=== PATIENT | female | born 1980 | race African-American/Black ===

== ENCOUNTER 2019-01-29 22:53 | Observation (INO) | payer OTHER ==
[2019-01-29] MEDS ORDERED: MAGNESIUM SULFATE/D5W 2 GM/200 ML RTUPB IV ONE (23:01)
[2019-01-29] MEDS ORDERED: METHYLPREDNISOLONE INJ 125 MG/2 ML SDV ONE (23:01)
[2019-01-29] MEDS ORDERED: IPRATROPIUM/ALBUTEROL 0.5-2.5 MG/3 ML AMPUL NEB ONE ×2 (23:01→23:11)
[2019-01-29] MEDS ORDERED: ALBUTEROL SULFATE 0.083% NEB 2.5 MG/3 ML AMPUL NEB ONE ×2 (23:01→23:12)
[2019-01-29] MEDS ORDERED: METHYLPREDNISOLONE INJ 125 MG/2 ML SDV IV ONE (23:11)
[2019-01-29] MEDS: MAGNESIUM SULFATE/D5W 1 GM/100 ML RTUPB IV SCH ×2 (23:11→23:30)
[2019-01-29] MEDS ORDERED: RINGERS SOLUTION,LACTATED 1,000 ML IV ONE (23:12)
--- NOTE | 2019-01-29 23:14 | ER Document Report ---
ED General <TENNILLE QUINTANILLA - Last Filed: 01/30/19 00:34> - General Cannot obtain history due to: Unstable vital signs, Other - Respiratory distress TRAVEL OUTSIDE OF THE [place] IN LAST 30 DAYS: No <TENNILLE CERNA - Last Filed: 01/30/19 04:49> - General Chief Complaint: Shortness Of Breath Stated Complaint: SHORTNESS OF BREATH Time Seen by Provider: 01/29/19 23:11 Notes: Patient is a 38-year-old female with a past medical history of asthma, obesity, hypertension, presents with 4 to 5 hours of progressively worsening shortness of breath. History is very limited secondary to the degree of patient's distress at time of initial presentation. States that her symptoms have been progressively worsening despite use of home albuterol treatments. No obvious worsening factor. States that she has had severe exacerbations in the past but is never required intubation. Has not seen her primary care physician regarding today's concerns. Denies fever or constitutional symptoms. (TENNILLE CERNA) - Related Data Allergies/Adverse Reactions: No Known Allergies Allergy (Verified 12/05/13 14:57) Past Medical History - General Information source: Patient, Relative Cannot obtain history due to: Unstable vital signs, Other - Respiratory distress - Social History Smoking Status: Never Smoker Frequency of alcohol use: None Drug Abuse: None Lives with: Family Family History: Reviewed & Not Pertinent Pulmonary Medical History: Reports: Hx Asthma Past Surgical History: Reports: Hx Abdominal Surgery - gasll stones removed - Immunizations Hx Diphtheria, Pertussis, Tetanus Vaccination: Yes <TENNILLE CERNA - Last Filed: 01/30/19 04:49> Review of Systems <TENNILLE CERNA - Last Filed: 01/30/19 04:49> - Review of Systems Notes: Constitutional: Negative for fever. HENT: Negative for sore throat. Eyes: Negative for visual changes. Cardiovascular: Negative for chest pain. Respiratory: Positive for shortness of breath. Gastrointestinal: Negative for abdominal pain, vomiting or diarrhea. Genitourinary: Negative for dysuria. Musculoskeletal: Negative for back pain. Skin: Negative for rash. Neurological: Negative for headaches, weakness or numbness. 10 point ROS negative except as marked above and in HPI. (TENNILLE CERNA) Physical Exam - Vital signs Interpretation: Tachycardic, Tachypneic <TENNILLE CERNA - Last Filed: 01/30/19 04:49> - Vital signs Vitals: Temp Pulse Resp BP Pulse Ox 98.3 F 104 H 24 H 149/94 H 99 01/29/19 22:55 01/29/19 22:55 01/29/19 22:55 01/29/19 22:55 01/29/19 22:55 Notes: PHYSICAL EXAMINATION: GENERAL: Appears unwell, in severe respiratory distress HEAD: Atraumatic, normocephalic. EYES: Pupils equal round and reactive to light, extraocular movements intact, sclera anicteric, conjunctiva are normal. ENT: nares patent, oropharynx clear without exudates. Dry mucous membranes. NECK: Normal range of motion, supple without lymphadenopathy LUNGS: Severe respiratory distress, unable to speak more than 1-2 words per sentence. Retracting. Diminished air movement in all lung beckham with global expiratory wheezing throughout. HEART: Regular tachycardia without murmurs ABDOMEN: Soft, nontender, normoactive bowel sounds. No guarding, no rebound. No masses appreciated. EXTREMITIES: Normal range of motion, no pitting or edema. No cyanosis. NEUROLOGICAL: No focal neurological deficits. Moves all extremities spontaneously and on command. PSYCH: Anxious but appropriate to situation SKIN: Warm, Dry, normal turgor, no rashes or lesions noted. (TENNILLE CERNA) Course - Laboratory Result Diagrams: 01/29/19 23:11 01/29/19 23:11 <TENNILLE QUINTANILLA - Last Filed: 01/30/19 00:34> - Laboratory Result Diagrams: 01/29/19 23:11 01/29/19 23:11 - Diagnostic Test Radiology reviewed: Image reviewed, Reports reviewed <TENNILLE CERNA - Last Filed: 01/30/19 04:49> - Re-evaluation Re-evalutation: 01/30/19 00:34 as well as the middle of a respiratory cardiac arrest in a pediatric patient. I therefore reevaluate the patient. She is currently on BiPAP and has received breathing treatments. She still has just very mild scattered wheezing but is moving air well and has no increased work of breathing and looks well. Patient states she is feeling improved. (TENNILLE QUINTANILLA) 01/29/19 23:13 Documentation is delayed as I been at this patient's bedside continuously for the past 15 minutes. The patient arrives in severe respiratory distress. Unable to speak in more than 3 words in a sentence. Very diminished air movement in all lung beckham with coarse expiratory wheezing throughout. She is breathing with pursed lips. Obvious respiratory distress. Has a history of asthma with similar presentations in the past. Notes that she has never required intubation for her asthma the past. Continuous nebs, in-line with BiPA P, magnesium, Solu-Medrol have all been initiated. IV fluids will be initiated. Chest x-ray pending. Labs pending. Patient is in guarded condition given her degree of distress and require frequent reassessments. 01/30/19 01:19 Patient has been reassessed on 2 occasions in total since my initial assessment. Patient's work of breathing has markedly improved on BiPAP with continuous in- line nebs although she did remain tight after my initial 2 assessments and 10 mg of additional albuterol was administered. Her labs, chest x-ray, EKG unremarkable. However given her ongoing need for ventilatory assistance with BiPAP and still having scattered wheezes will discuss the hospitalist for admiss ion. (TENNILLE CERNA) - Vital Signs Vital signs: Temp Pulse Resp BP Pulse Ox 98.3 F 83 18 154/91 H 99 01/29/19 22:55 01/30/19 03:44 01/30/19 03:44 01/30/19 03:02 01/30/19 03:44 - Laboratory Laboratory results interpreted by me: 01/29/19 23:11 MCH 26.2 L RDW 15.8 H - Diagnostic Test Radiology results interpreted by me: 01/30/19 01:55 Chest x-ray: No acute infiltrate or pneumothorax (TENNILLE CERNA) - EKG Interpretation by Mt Additional EKG results interpreted by wa: 01/30/19 04:49 Sinus rhythm, rate 88. No ST elevations or depressions. QTC is 446. (TENNILLE CERNA) Critical Care Note - Critical Care Note Total time excluding time spent on procedures (mins): 36 <TENNILLE CERNA - Last Filed: 01/30/19 04:49> - Critical Care Note Comments: Critical care time spent obtaining history from patient or surrogate, discussions with consultants, development of treatment plan with patient or surr ogate, evaluation of patient's response to treatment, examination of patient, ordering and performing treatments and interventions, ordering and review of laboratory studies, re-evaluation of patient's condition, ordering and review of radiographic studies and review of old charts (TENNILLE CERNA) Discharge <TENNILLE QUINTANILLA - Last Filed: 01/30/19 00:34> - Discharge Admitting Provider: Abhishek (Hospitalist) Unit Admitted: Telemetry <TENNILLE CERNA - Last Filed: 01/30/19 04:49> - Discharge Clinical Impression: Respiratory distress Asthma exacerbation Qualifiers: Asthma severity: severe Asthma persistence: persistent Qualified Code(s): J45.51 - Severe persistent asthma with (acute) exacerbation Condition: Fair Disposition: ADMITTED INPATIENT
[2019-01-29 23:47] LABS: ABSOLUTE BASOPHILS # (AUTO) 0.1 10^3/uL (0.0-0.2); ABSOLUTE EOSINOPHILS # (AUTO) 0.3 10^3/uL (0.0-0.6); ABSOLUTE LYMPHOCYTES (AUTO) 2.8 10^3/uL (0.5-4.7); ABSOLUTE MONOCYTES (AUTO) 0.6 10^3/uL (0.1-1.4); ABSOLUTE NEUT (AUTO) 3.7 10^3/uL (1.7-8.2); BASOPHILS % (AUTO) 0.8 % (0-2); EOSINOPHILS % (AUTO) 3.4 % (0-6); HEMATOCRIT 38.4 % (36.0-47.0); HEMOGLOBIN 12.6 g/dL (12.0-15.5); LYMPHOCYTES % (AUTO) 37.7 % (13-45); MEAN CORPUSCULAR HEMOGLOBIN 26.2 pg (27.0-33.4); MEAN CORPUSCULAR HGB CONC 32.7 g/dL (32.0-36.0); MEAN CORPUSCULAR VOLUME 80 fl (80-97); PLATELET COUNT 315 10^3/uL (150-450); RED CELL DISTRIBUTION WIDTH 15.8 % (11.5-14.0); SEGMENTED NEUTROPHILS % (AUTO) 50.1 % (42-78); TOTAL CELLS COUNTED % (AUTO) 100 %; WHITE BLOOD COUNT 7.4 10^3/uL (4.0-10.5)
[2019-01-29 23:56] LABS: VENOUS BLOOD BASE EXCESS -1.9 mmol/L; VENOUS BLOOD HCO3 24.6 mmol/L (20-32); VENOUS BLOOD PCO2 48.6 mmHg (35-63); VENOUS BLOOD PH 7.32 (7.30-7.42)
[2019-01-30 00:04] LABS: ANION GAP 10 (5-19); BLOOD UREA NITROGEN 9 mg/dL (7-20); CALCIUM 9.2 mg/dL (8.4-10.2); CARBON DIOXIDE 26 mmol/L (22-30); CHLORIDE 105 mmol/L (98-107); GLUCOSE 96 mg/dL (75-110); SODIUM 140.7 mmol/L (137-145)
--- NOTE | 2019-01-30 00:20 | RADIOLOGY REPORT (SQ) ---
CLINICAL HISTORY: sob COMPARISON: None. TECHNIQUE: XR CHEST 1 VIEW 01/29/2019 11:12 PM CDT FINDINGS: Cardiac silhouette is normal in size. Lungs are clear without consolidation, atelectasis, mass or edema. There is no pleural effusion. There is no pneumothorax. There are no acute osseous findings. IMPRESSION: Clear lungs.
[2019-01-30] MEDS ORDERED: ALBUTEROL SULFATE 0.083% NEB 2.5 MG/3 ML AMPUL NEB ONE (00:32)
[2019-01-30] MEDS ORDERED: LORAZEPAM INJ 2 MG/1 ML VIAL IV ONE (01:15)
[2019-01-30] MEDS ORDERED: HYDRALAZINE HCL INJ/PF 20 MG/1 ML SDV IV PRN (01:48)
[2019-01-30] MEDS ORDERED: LACTULOSE SYRUP 20 GM/30 ML UDCUP PO ONE (01:48)
[2019-01-30] MEDS ORDERED: ACETAMINOPHEN 325 MG TABLET PO PRN (01:49)
[2019-01-30] MEDS ORDERED: IPRATROPIUM/ALBUTEROL 0.5-2.5 MG/3 ML AMPUL NEB PRN (01:49)
[2019-01-30] MEDS ORDERED: GUAIFENESIN SYRP 200 MG/10 ML UDC PO PRN (01:49)
[2019-01-30] MEDS ORDERED: AZITHROMYCIN INJ 500 MG VIAL IV ONE (03:09)
[2019-01-30] MEDS ORDERED: CHLORPHENIRAMINE MALEATE 4 MG TABLET ONE (03:09)
[2019-01-30] MEDS: CHLORPHENIRAMINE MALEATE 4 MG TABLET PO SCH ×4 (03:13→21:42)
[2019-01-30] MEDS: PREDNISONE 20 MG TABLET PO SCH ×2 (03:13→09:57)
[2019-01-30] MEDS: AZITHROMYCIN 500 MG in DEXTROSE 5%-WATER 250 ML IV SCH ×2 (03:14→21:43)
[2019-01-30] MEDS: IPRATROPIUM/ALBUTEROL 0.5-2.5 MG/3 ML AMPUL NEB SCH ×4 (03:40→19:23)
--- NOTE | 2019-01-30 04:03 | PDOC H&P ---
History of Present Illness Admission Date/PCP: 01/30/19 01:59 Patient complains of: Asthma exacerbation History of Present Illness: SHANNAN REDD is a 38 year old female with a past medical history of morbid obesity and asthma who presents with approximately 7 days of intermittent worsening of shortness of breath with wheeze attributed to chronic asthma. She admits exposure to multiple triggers including excessive heat exposure, unknown chemical fumes and pets. However she also admits to uncontrolled GERD and rhinorrhea. She denies fever change of medication regiment or previous hospitalization. In the emergency room she is found to be in severe respiratory distress with tachypnea, retractions and global wheeze. She receives continuous albuterol, magnesium and BiPAP with moderate improvement she is referred to the hospitalist for admission. Past Medical History Pulmonary Medical History: Reports: Asthma Psychiatric Medical History: Denies: Tobacco Dependency Past Surgical History Past Surgical History: Reports: None Social History Information Source: Patient, Emergency Med Personnel, [facility] Records Lives with: Family Smoking Status: Unknown if Ever Smoked Frequency of Alcohol Use: None Drugs: None - Advance Directive Resuscitation Status: Full Code Family History Family History: CAD, COPD Parental Family History Reviewed: Yes Children Family History Reviewed: Yes Sibling(s) Family History Reviewed.: Yes Medication/Allergy Home Medications: Ciprofloxacin HCl [Cipro 250 mg Tablet] 1 tab PO BID #6 tab 12/05/13 Metronidazole [Flagyl 500 mg Tablet] 500 mg PO BID #14 tablet 12/05/13 Allergies/Adverse Reactions: No Known Allergies Allergy (Verified 12/05/13 14:57) Review of Systems Constitutional: PRESENT: as per HPI, fatigue. ABSENT: fever(s) Eyes: ABSENT: visual disturbances Ears: ABSENT: hearing changes Nose, Mouth, and Throat: PRESENT: as per HPI, other - Rhinorrhea without facial pain Cardiovascular: PRESENT: as per HPI, dyspnea on exertion Respiratory: PRESENT: as per HPI, cough - Nonproductive, dyspnea. ABSENT: sputum Gastrointestinal: PRESENT: as per HPI, heartburn. ABSENT: abdominal pain, constipation, diarrhea, hematemesis, hematochezia, nausea, vomiting Genitourinary: ABSENT: dysuria, hematuria Musculoskeletal: PRESENT: other - Right leg edema. ABSENT: joint swelling Integumentary: ABSENT: rash, wounds Neurological: ABSENT: abnormal gait, abnormal speech, confusion, dizziness, focal weakness, syncope Psychiatric: ABSENT: anxiety, depression, homidical ideation, suicidal ideation Endocrine: ABSENT: cold intolerance, heat intolerance, polydipsia, polyuria Hematologic/Lymphatic: ABSENT: easy bleeding, easy bruising Physical Exam Vital Signs: Temp Pulse Resp BP Pulse Ox 98.3 F 83 18 154/91 H 99 01/29/19 22:55 01/30/19 03:44 01/30/19 03:44 01/30/19 03:02 01/30/19 03:44 Intake & Output 01/28/19 01/29/19 01/30/19 11:59 11:59 11:59 Intake Total 1132 Balance 1132 Weight 110 kg General appearance: PRESENT: cooperative, morbidly obese, severe distress. ABSENT: hard of hearing Head exam: PRESENT: atraumatic, normocephalic Eye exam: PRESENT: conjunctiva pink, EOMI, PERRLA. ABSENT: scleral icterus Ear exam: PRESENT: normal external ear exam Mouth exam: PRESENT: moist, tongue midline Neck exam: ABSENT: carotid bruit, JVD, lymphadenopathy, thyromegaly Respiratory exam: PRESENT: accessory muscle use, decreased breath sounds, prolonged expiratory phas, retraction, symmetrical, tachypnea, wheezes Cardiovascular exam: PRESENT: RRR. ABSENT: diastolic murmur, rubs, systolic murmur Pulses: PRESENT: normal dorsalis pedis pul Vascular exam: PRESENT: normal capillary refill GI/Abdominal exam: PRESENT: ascites Rectal exam: PRESENT: deferred Extremities exam: PRESENT: full ROM, +1 edema - Right leg. ABSENT: clubbing, joint swelling Neurological exam: PRESENT: alert, awake, oriented to person, oriented to place, oriented to time, oriented to situation, CN II-XII grossly intact. ABSENT: motor sensory deficit Psychiatric exam: PRESENT: appropriate affect, normal mood. ABSENT: homicidal ideation, suicidal ideation Skin exam: PRESENT: abrasion Results Laboratory Results: 01/29/19 23:11 01/29/19 23:11 01/29/19 01/29/19 01/29/19 23:11 23:11 23:11 WBC 7.4 RBC 4.80 Hgb 12.6 Hct 38.4 MCV 80 MCH 26.2 L MCHC 32.7 RDW 15.8 H Plt Count 315 Seg Neutrophils % 50.1 Lymphocytes % 37.7 Monocytes % 8.0 Eosinophils % 3.4 Basophils % 0.8 Absolute Neutrophils 3.7 Absolute Lymphocytes 2.8 Absolute Monocytes 0.6 Absolute Eosinophils 0.3 Absolute Basophils 0.1 VBG pH 7.32 VBG pCO2 48.6 VBG HCO3 24.6 VBG Base Excess -1.9 Sodium 140.7 Potassium 4.0 Chloride 105 Carbon Dioxide 26 Anion Gap 10 BUN 9 Creatinine 0.97 Est GFR ( Amer) > 60 Est GFR (Non-Af Amer) > 60 Glucose 96 Calcium 9.2 TSH 01/29/19 23:11 WBC RBC Hgb Hct MCV MCH MCHC RDW Plt Count Seg Neutrophils % Lymphocytes % Monocytes % Eosinophils % Basophils % Absolute Neutrophils Absolute Lymphocytes Absolute Monocytes Absolute Eosinophils Absolute Basophils VBG pH VBG pCO2 VBG HCO3 VBG Base Excess Sodium Potassium Chloride Carbon Dioxide Anion Gap BUN Creatinine Est GFR ( Amer) Est GFR (Non-Af Amer) Glucose Calcium TSH 4.40 01/29/19 01/29/19 23:11 23:11 Troponin I < 0.012 NT-Pro-B Natriuret Pep 42 Impressions: Chest X-Ray 01/29/19 23:12 IMPRESSION: Clear lungs. Assessment and Plan - Diagnosis (1) Asthma exacerbation Qualifiers: Asthma severity: severe Asthma persistence: persistent Qualified Code(s): J45.51 - Severe persistent asthma with (acute) exacerbation Is this a current diagnosis for this admission?: Yes Plan: Steroids, albuterol, supplemental oxygen, minimize triggers of allergic sinusitis, GERD, and trigger avoidance with education, follow-up peak flow (2) Allergic sinusitis Is this a current diagnosis for this admission?: Yes Plan: Chlorpheniramine and Flonase (3) GERD (gastroesophageal reflux disease) Is this a current diagnosis for this admission?: Yes Plan: Pepcid and education (4) Morbid obesity Is this a current diagnosis for this admission?: Yes Plan: Follow-up TSH (5) DVT (deep venous thrombosis) Is this a current diagnosis for this admission?: Yes Plan: Patient complains of 3 weeks of right leg swelling, follow-up venous Doppler rule out DVT (6) Respiratory distress Is this a current diagnosis for this admission?: Yes Plan: Secondary to #1, supplemental oxygen and BiPAP, control asthma - Time Time Spent with patient: 25-34 minutes - Inpatient Certification Medical Necessity: Need Close Monitoring Due to Risk of Patient Decompensation
[2019-01-30] MEDS: FLUTICASONE NASAL SPRAY 50 MCG/SPRY 120 SPRAY/16 GM NASL SCH ×3 (04:39→21:42)
[2019-01-30] MEDS: FAMOTIDINE 20 MG TABLET PO SCH ×2 (05:32→09:57)
[2019-01-30] MEDS: HEPARIN SOD (PORCINE) 5,000 UNIT/ML 1 ML SYRINGE SUBCUT SCH ×3 (05:32→21:41)
[2019-01-30] MEDS ORDERED: PANTOPRAZOLE SODIUM 40 MG TABLET.DR PO ONE (11:02)
--- NOTE | 2019-01-30 11:27 | PDOC PROGRESS REPORT ---
Subjective Progress Note for:: 01/30/19 Subjective:: This is 38 years old black female patient with past medical history of morbid obesity, bronchial asthma and gastroesophageal reflux disease presents with chief complaint of shortness of previous and wheezing which has been going on for the last 7 days. Despite using her home albuterol inhaler her shortness of paresis worsening day by day. Patient has been started on bronchodilator and steroid. This morning I seen patient resting in bed comfortably. She reports this some improvement in her breathing. I listen to her chest still she has some occasional wheezing compost and feels. I changed her Pepcid to pantoprazole and I switched her prednisone to IV Solu-Medrol. Reason For Visit: ASTHMA EXACERBATION,ACUTE BRONCHITIS Physical Exam Vital Signs: Temp Pulse Resp BP Pulse Ox 97.5 F 112 H 18 113/68 99 01/30/19 04:09 01/30/19 07:43 01/30/19 07:43 01/30/19 04:09 01/30/19 07:43 Intake & Output 01/29/19 01/30/19 01/31/19 06:59 06:59 06:59 Intake Total 1382 Balance 1382 Weight 110.3 kg General appearance: PRESENT: mild distress, morbidly obese Eye exam: PRESENT: conjunctiva pink Neck exam: ABSENT: carotid bruit, JVD, lymphadenopathy, thyromegaly Respiratory exam: PRESENT: wheezes Cardiovascular exam: PRESENT: RRR. ABSENT: diastolic murmur, rubs, systolic murmur GI/Abdominal exam: PRESENT: normal bowel sounds, soft. ABSENT: distended, guarding, mass, organolmegaly, rebound, tenderness Neurological exam: PRESENT: alert, awake, oriented to situation Psychiatric exam: PRESENT: normal mood Results Laboratory Results: 01/29/19 23:11 01/29/19 23:11 01/29/19 01/29/19 01/29/19 23:11 23:11 23:11 WBC 7.4 RBC 4.80 Hgb 12.6 Hct 38.4 MCV 80 MCH 26.2 L MCHC 32.7 RDW 15.8 H Plt Count 315 Seg Neutrophils % 50.1 Lymphocytes % 37.7 Monocytes % 8.0 Eosinophils % 3.4 Basophils % 0.8 Absolute Neutrophils 3.7 Absolute Lymphocytes 2.8 Absolute Monocytes 0.6 Absolute Eosinophils 0.3 Absolute Basophils 0.1 VBG pH 7.32 VBG pCO2 48.6 VBG HCO3 24.6 VBG Base Excess -1.9 Sodium 140.7 Potassium 4.0 Chloride 105 Carbon Dioxide 26 Anion Gap 10 BUN 9 Creatinine 0.97 Est GFR ( Amer) > 60 Est GFR (Non-Af Amer) > 60 Glucose 96 Calcium 9.2 TSH 01/29/19 23:11 WBC RBC Hgb Hct MCV MCH MCHC RDW Plt Count Seg Neutrophils % Lymphocytes % Monocytes % Eosinophils % Basophils % Absolute Neutrophils Absolute Lymphocytes Absolute Monocytes Absolute Eosinophils Absolute Basophils VBG pH VBG pCO2 VBG HCO3 VBG Base Excess Sodium Potassium Chloride Carbon Dioxide Anion Gap BUN Creatinine Est GFR ( Amer) Est GFR (Non-Af Amer) Glucose Calcium TSH 4.40 01/29/19 01/29/19 23:11 23:11 Troponin I < 0.012 NT-Pro-B Natriuret Pep 42 Impressions: Chest X-Ray 01/29/19 23:12 IMPRESSION: Clear lungs. Assessment and Plan - Diagnosis (1) Acute asthma exacerbation Qualifiers: Asthma persistence: intermittent Is this a current diagnosis for this admission?: Yes Plan: Failed to respond to outpatient treatment. Continue current regimen. It includes Solu-Medrol 60 mg IV every 6 hours, bronchodilator and incentive spirometry (2) Gastroesophageal reflux disease Qualifiers: Esophagitis presence: without esophagitis Qualified Code(s): K21.9 - Gastro-esophageal reflux disease without esophagitis Is this a current diagnosis for this admission?: Yes Plan: Her famotidine switched to pantoprazole. (3) Morbid obesity with BMI of 40.0-44.9, adult Is this a current diagnosis for this admission?: Yes Plan: Patient counseled and encouraged to do lifestyle modification.
[2019-01-30] MEDS: METHYLPREDNISOLONE INJ 125 MG/2 ML SDV IV SCH ×3 (12:31→23:42)
--- NOTE | 2019-01-30 12:35 | EKG REPORT ---
SEVERITY:- NORMAL ECG - SINUS RHYTHM : Confirmed by: Gilmar Barnard 30-Jan-2019 12:35:07
--- NOTE | 2019-01-30 13:46 | RADIOLOGY REPORT (SQ) ---
EXAM DESCRIPTION: VENOUS UNILATERAL LOWER COMPLETED DATE/TIME: 01/30/2019 1:21 pm REASON FOR STUDY: Right leg DVT? COMPARISON: None TECHNIQUE: Dynamic and static azul scale and color images acquired of the right leg venous system. S elected spectral images acquired with additional compression and augmentation maneuvers. The contrala teral common femoral vein and saphenofemoral junction were also imaged. Images stored on PACS. LIMITATIONS: Markedly limited due to patient's size. FINDINGS: RIGHT COMMON FEMORAL: Normal phasicity, compression and augmentation. No visualized echoge france material on azul scale. No defects on color images. FEMORAL: The right femoral vein is not well visualized. Doppler flow and waveforms within the femor al vein identified. POPLITEAL: Normal compression, augmentation. No visualized echogenic material on azul scale. No defec ts on color images. CALF VESSELS: Normal compression, augmentation. No visualized echogenic material on azul scale. No de fects on color images. GSV and SSV: Normal compression, augmentation. No visualized echogenic material on azul scale. No def ects on color images. ANY DEEP VENOUS INSUFFICIENCY: Not evaluated. ANY EVIDENCE OF POPLITEAL CYST: No. OTHER: No other significant finding. LEFT COMMON FEMORAL VEIN AND SAPHENOFEMORAL JUNCTION: Normal phasicity, compression and augmentation. No visualized echogenic material on azul scale. No de fects on color images. IMPRESSION: Limited evaluation of right femoral vein. No definite deep venous thrombosis identified . TECHNICAL DOCUMENTATION: JOB ID: [id number] 2010 [employer]- All Rights Reserved Reading location - IP/workstation name: [email or web address]
[2019-01-31] MEDS: IPRATROPIUM/ALBUTEROL 0.5-2.5 MG/3 ML AMPUL NEB SCH ×2 (01:40→07:52)
[2019-01-31 03:18] VITALS: BP 140/70
[2019-01-31 05:06] LABS: ABSOLUTE MONOCYTES (AUTO) 0.1 10^3/uL (0.1-1.4); TOTAL CELLS COUNTED % (AUTO) 100 %
[2019-01-31 05:10] LABS: ABSOLUTE LYMPHOCYTES (AUTO) 0.7 10^3/uL (0.5-4.7); ABSOLUTE NEUT (AUTO) 9.3 10^3/uL (1.7-8.2); HEMATOCRIT 34.7 % (36.0-47.0); HEMOGLOBIN 11.5 g/dL (12.0-15.5); LYMPHOCYTES % (AUTO) 6.9 % (13-45); MEAN CORPUSCULAR HEMOGLOBIN 26.2 pg (27.0-33.4); MEAN CORPUSCULAR VOLUME 79 fl (80-97); MONOCYTES % (AUTO) 1.3 % (3-13); PLATELET COUNT 271 10^3/uL (150-450); RED BLOOD COUNT 4.37 10^6/uL (3.72-5.28); SEGMENTED NEUTROPHILS % (AUTO) 91.8 % (42-78); WHITE BLOOD COUNT 10.2 10^3/uL (4.0-10.5)
[2019-01-31 05:27] LABS: ANION GAP 12 (5-19); BLOOD UREA NITROGEN 16 mg/dL (7-20); CALCIUM 9.3 mg/dL (8.4-10.2); CARBON DIOXIDE 19 mmol/L (22-30); CHLORIDE 107 mmol/L (98-107); GLUCOSE 227 mg/dL (75-110); POTASSIUM 4.7 mmol/L (3.6-5.0); SODIUM 138.1 mmol/L (137-145)
[2019-01-31] MEDS: METHYLPREDNISOLONE INJ 125 MG/2 ML SDV IV SCH (05:29)
[2019-01-31] MEDS: HEPARIN SOD (PORCINE) 5,000 UNIT/ML 1 ML SYRINGE SUBCUT SCH (05:29)
[2019-01-31] MEDS ORDERED: PANTOPRAZOLE SODIUM 40 MG TABLET.DR PO SCH (06:00)
[2019-01-31] MEDS: FLUTICASONE NASAL SPRAY 50 MCG/SPRY 120 SPRAY/16 GM NASL SCH (09:17)
--- NOTE | 2019-01-31 09:39 | PDOC DISCHARGE SUMMARY ---
General - Admit/Disc Date/PCP Admission Date/Primary Care Provider: 01/30/19 01:59 Discharge Date: 01/31/19 - Discharge Diagnosis (1) Acute asthma exacerbation Is this a current diagnosis for this admission?: Yes (2) Gastroesophageal reflux disease Is this a current diagnosis for this admission?: Yes (3) Morbid obesity with BMI of 40.0-44.9, adult Is this a current diagnosis for this admission?: Yes - Additional Information Resuscitation Status: Full Code Home Medications: No Home Medications 01/30/19 History of Present Illness History of Present Illness: SHANNAN REDD is a 38 year old female with a past medical history of morbid obesity and asthma who presents with approximately 7 days of intermittent worsening of shortness of breath with wheeze attributed to chronic asthma. She admits exposure to multiple triggers including excessive heat exposure, unknown chemical fumes and pets. However she also admits to uncontrolled GERD and rhinorrhea. She denies fever change of medication regiment or previous hospitalization. In the emergency room she is found to be in severe respiratory distress with tachypnea, retractions and global wheeze. She receives continuous albuterol, magnesium and BiPAP with moderate improvement she is referred to the hospitalist for admission. Hospital Course Hospital Course: This is 38 years old black female patient with past medical history of morbid obesity, bronchial asthma and gastroesophageal reflux disease presents with chief complaint of shortness of previous and wheezing which has been going on for the last 7 days. Despite using her home albuterol inhaler her shortness of paresis worsening day by day. Patient has been started on bronchodilator and steroid. This morning I seen patient resting in bed comfortably. She reports this some improvement in her breathing. I listen to her chest still she has so me occasional wheezing compost and feels. I changed her Pepcid to pantoprazole and I switched her prednisone to IV Solu-Medrol. This morning I seen patient sitting up on recliner and enjoying her breakfast. She is awake alert oriented she is not in pain or distress. Her vital signs and blood works are unremarkable. Patient is stable enough to go home. I will send her home with prednisone 40 mg p.o. daily for 7 days and she is advised to continue her home breathing treatment and follow-up with her primary care physician. Physical Exam Vital Signs: Temp Pulse Resp BP Pulse Ox 97.9 F 89 18 140/70 H 96 05/26/19 03:17 01/31/19 07:54 01/31/19 07:54 01/31/19 03:17 01/31/19 07:54 Intake & Output 01/30/19 01/31/19 02/01/19 06:59 06:59 06:59 Intake Total 1382 924 Balance 1382 924 Weight 110.3 kg 110.3 kg General appearance: PRESENT: no acute distress Head exam: PRESENT: atraumatic Mouth exam: PRESENT: moist, tongue midline Neck exam: ABSENT: carotid bruit, JVD, lymphadenopathy, thyromegaly Respiratory exam: PRESENT: clear to auscultation radha. ABSENT: rales, rhonchi, wheezes Cardiovascular exam: PRESENT: RRR. ABSENT: diastolic murmur, rubs, systolic murmur Neurological exam: PRESENT: alert, awake, oriented to time, oriented to situation Results Laboratory Results: 01/31/19 04:11 01/31/19 04:11 01/31/19 01/31/19 04:11 04:11 WBC 10.2 RBC 4.37 Hgb 11.5 L Hct 34.7 L MCV 79 L MCH 26.2 L MCHC 33.0 RDW 16.0 H Plt Count 271 Seg Neutrophils % 91.8 H Lymphocytes % 6.9 L Monocytes % 1.3 L Eosinophils % 0.0 Basophils % 0.0 Absolute Neutrophils 9.3 H Absolute Lymphocytes 0.7 Absolute Monocytes 0.1 Absolute Eosinophils 0.0 Absolute Basophils 0.0 Sodium 138.1 Potassium 4.7 Chloride 107 Carbon Dioxide 19 L Anion Gap 12 BUN 16 Creatinine 0.94 Est GFR ( Amer) > 60 Est GFR (Non-Af Amer) > 60 Glucose 227 H Calcium 9.3 01/29/19 01/29/19 23:11 23:11 Troponin I < 0.012 NT-Pro-B Natriuret Pep 42 Impressions: Chest X-Ray 01/29/19 23:12 IMPRESSION: Clear lungs. Venous Doppler Study 01/30/19 00:00 IMPRESSION: Limited evaluation of right femoral vein. No definite deep venous thrombosis identified. Qualifiers - * PATIENT BEING DISCHARGED WITH ANY OF THE FOLLOWING DIAGNOSIS: No Acute Heart Failure Is this a Heart Failure Patient?: No
== END 2019-01-31 12:06 | disposition home or self-care (01) ==
LOC: ER 22:53 → INTOOBSV 01-30 01:59 → EH 01-30 01:59 → 5 01-30 04:08
PROVIDERS: ADMIT Internal Medicine; ATTEND Internal Medicine
DX: J45.21 Mild intermittent asthma with (acute) exacerbation (principal); K21.9 Gastro-esophageal reflux disease without esophagitis; R06.03 Acute respiratory distress; E66.01 Morbid (severe) obesity due to excess calories; R60.0 Localized edema; J30.9 Allergic rhinitis, unspecified; R00.0 Tachycardia, unspecified; Z68.41 Body mass index [BMI] 40.0-44.9, adult; Z82.49 Family history of ischemic heart disease and other diseases of the circulatory system; Z82.5 Family history of asthma and other chronic lower respiratory diseases
CPT/HCPCS: 93005; 94640 ×4; 99291; 96375; 96365; 36415 ×3; 84443; 85025 ×2; 80048 ×2; 84484; 82803; 83880; 93971; 71045; 93010; 94660; G0378 ×3; J1644 ×2; J2930 ×3; J2060; J3475; J7512; J3490 ×4; J7060; J7120; J0456; J7620 ×3

== ENCOUNTER 2019-02-04 12:15 | Emergency (ER) | payer OTHER ==
[2019-02-04] MEDS ORDERED: METHYLPREDNISOLONE INJ 125 MG/2 ML SDV IV ONE (13:03)
[2019-02-04] MEDS ORDERED: MAGNESIUM SULFATE/D5W 1 GM/100 ML RTUPB IV ONE ×2 (13:03→13:04)
[2019-02-04] MEDS ORDERED: IPRATROPIUM/ALBUTEROL 0.5-2.5 MG/3 ML AMPUL NEB ONE (13:03)
--- NOTE | 2019-02-04 13:04 | ER Document Report ---
ED Medical Screen (RME) - General Chief Complaint: Breathing Difficulty Stated Complaint: BODY PAIN,SHORTNESS OF BREATH Time Seen by Provider: 02/04/19 12:59 TRAVEL OUTSIDE OF THE [place] IN LAST 30 DAYS: No - HPI Notes: 02/04/19 13:02 Patient is a 38-year-old female with a history of obesity, hypertension, and asthma who presents complaining of dyspnea on exertion, wheezing, and increased shortness of breath over the past few days. Patient was seen 5 days ago and was admitted and placed on BiPAP for an asthma exacerbation. She stayed 1 day and then was discharged. Patient states that she is not to that extent to where she was placed on BiPAP and admitted, but has not been able to improve her symptoms with her inhaler at home. Denies MONAE, fever, neck pain, URI, CP, Abd pain, dysuria, back pain, or rash. I have treated and performed a rapid initial assessment of this patient. A comprehensive ED assessment and evaluation of the patient, analysis of test results and completion of medical decision making process will be conducted by additional ED providers. PHYSICAL EXAMINATION: GENERAL: Well-appearing, well-nourished and in no acute distress. A&Ox4. Answers questions appropriately. Able to speak in complete sentences w/o significant difficulty. LUNGS: exp wheezes b/l. no retractions. HEART: Regular rate and rhythm without murmurs, rubs, gallops. NEUROLOGICAL: Normal speech, normal gait. PSYCH: Normal mood, normal affect. - Related Data Allergies/Adverse Reactions: No Known Allergies Allergy (Verified 02/04/19 12:21) Past Medical History - Social History Frequency of alcohol use: None Drug Abuse: None Pulmonary Medical History: Reports: Hx Asthma Renal/ Medical History: Denies: Hx Peritoneal Dialysis Psychiatric Medical History: Denies: Hx Depression Past Surgical History: Reports: Hx Abdominal Surgery - gasll stones removed - Immunizations Hx Diphtheria, Pertussis, Tetanus Vaccination: Yes Physical Exam - Vital signs Vitals: Temp Pulse Resp BP Pulse Ox 98.3 F 96 22 H 163/99 H 94 02/04/19 12:27 02/04/19 12:27 02/04/19 12:27 02/04/19 12:27 02/04/19 12:27 Course - Vital Signs Vital signs: Temp Pulse Resp BP Pulse Ox 98.3 F 96 22 H 163/99 H 94 02/04/19 12:27 02/04/19 12:27 02/04/19 12:27 02/04/19 12:27 02/04/19 12:27
--- NOTE | 2019-02-04 13:57 | RADIOLOGY REPORT (SQ) ---
EXAM DESCRIPTION: CHEST 2 VIEWS COMPLETED DATE/TIME: 02/04/2019 1:39 pm REASON FOR STUDY: cough/wheeze COMPARISON: 01/29/2019 EXAM PARAMETERS: NUMBER OF VIEWS: two views TECHNIQUE: Digital Frontal and Lateral radiographic views of the chest acquired. RADIATION DOSE: NA LIMITATIONS: none FINDINGS: LUNGS AND PLEURA: No opacities, masses or pneumothorax. No pleural effusion. MEDIASTINUM AND HILAR STRUCTURES: No masses or contour abnormalities. HEART AND VASCULAR STRUCTURES: Heart normal size. No evidence for failure. BONES: No acute findings. HARDWARE: None in the chest. OTHER: No other significant finding. IMPRESSION: NO ACUTE RADIOGRAPHIC FINDING IN THE CHEST. TECHNICAL DOCUMENTATION: JOB ID: [id number] [employer]- All Rights Reserved Reading location - IP/workstation name: [email or web address]
[2019-02-04 14:04] LABS: ABSOLUTE LYMPHOCYTES (AUTO) 1.7 10^3/uL (0.5-4.7); ABSOLUTE MONOCYTES (AUTO) 0.5 10^3/uL (0.1-1.4); ABSOLUTE NEUT (AUTO) 4.4 10^3/uL (1.7-8.2); BASOPHILS % (AUTO) 0.4 % (0-2); EOSINOPHILS % (AUTO) 0.4 % (0-6); HEMATOCRIT 39.6 % (36.0-47.0); LYMPHOCYTES % (AUTO) 25.9 % (13-45); MEAN CORPUSCULAR HEMOGLOBIN 26.1 pg (27.0-33.4); MEAN CORPUSCULAR HGB CONC 32.7 g/dL (32.0-36.0); MEAN CORPUSCULAR VOLUME 80 fl (80-97); MONOCYTES % (AUTO) 7.5 % (3-13); PLATELET COUNT 278 10^3/uL (150-450); RED BLOOD COUNT 4.96 10^6/uL (3.72-5.28); RED CELL DISTRIBUTION WIDTH 15.8 % (11.5-14.0); SEGMENTED NEUTROPHILS % (AUTO) 65.8 % (42-78); TOTAL CELLS COUNTED % (AUTO) 100 %; WHITE BLOOD COUNT 6.6 10^3/uL (4.0-10.5)
--- NOTE | 2019-02-04 14:16 | ER Document Report ---
ED General - General Chief Complaint: Breathing Difficulty Stated Complaint: BODY PAIN,SHORTNESS OF BREATH Time Seen by Provider: 02/04/19 12:59 Notes: Patient is a 38-year-old female with history of asthma that presents to the emergency department for chief complaint of shortness of breath and wheezing. Patient states he was recently admitted to the hospital for an asthma exacerbation, and discharged on prednisone, she states that her asthma seemed to flareup again over the past 24 hours, she is been having more wheezing she is been using her inhaler more frequently as well. 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 She states that some of the homes have dogs and cats and she thinks that those the ones are flaring up her asthma more. She denies having any chest pain, but does have some congestion, she feels that at times her throat is closing as well, and gets uncomfortable. At this time she is feeling much better after receiving treatments in triage. Past Medical History: Asthma Past Surgical History: Cholecystectomy Social History: Denies tobacco, alcohol or drug use. Family History: Reviewed and noncontributory for presenting illness Allergies: Reviewed, see documented allergy list. REVIEW OF SYSTEMS: Other than noted above, the 12 point review of systems was reviewed with the patient and were negative, all pertinent findings are included in the HPI. PHYSICAL EXAMINATION: Vital signs reviewed, nursing noted reviewed. GENERAL: Well-appearing, well-nourished and in no acute distress. HEAD: Atraumatic, normocephalic. EYES: Eyes appear normal, extraocular movements intact, sclera anicteric, conjunctiva are normal. ENT: nares patent, oropharynx clear without exudates. Moist mucous membranes. NECK: Normal range of motion, supple without lymphadenopathy, nontender LUNGS: Faint expiratory wheezing noted throughout all lung beck[place], no respiratory distress. HEART: Regular rate and rhythm without murmurs ABDOMEN: Soft, nontender, normoactive bowel sounds. No rebound, guarding, or rigidity. No masses appreciated. EXTREMITIES: Nontender, good range of motion, no pitting or edema. NEUROLOGICAL: No focal neurological deficits. Moves all extremities spontaneously Motor and sensory grossly intact on exam. PSYCH: Normal mood, normal affect. SKIN: Warm, Dry, normal turgor, no rashes or lesions noted on exposed skin TRAVEL OUTSIDE OF THE [place] IN LAST 30 DAYS: No - Related Data Allergies/Adverse Reactions: No Known Allergies Allergy (Verified 02/04/19 12:21) Past Medical History - Social History Smoking Status: Never Smoker Frequency of alcohol use: None Drug Abuse: None Family History: Reviewed & Not Pertinent Patient has suicidal ideation: No Patient has homicidal ideation: No Pulmonary Medical History: Reports: Hx Asthma Renal/ Medical History: Denies: Hx Peritoneal Dialysis Psychiatric Medical History: Denies: Hx Depression Past Surgical History: Reports: Hx Abdominal Surgery - gasll stones removed - Immunizations Hx Diphtheria, Pertussis, Tetanus Vaccination: Yes Physical Exam - Vital signs Vitals: Temp Pulse Resp BP Pulse Ox 98.3 F 96 22 H 163/99 H 94 02/04/19 12:27 02/04/19 12:27 02/04/19 12:27 02/04/19 12:27 02/04/19 12:27 Course - Re-evaluation Re-evalutation: Patient seen and examined vital signs reviewed. Laboratory data and/or imaging were ordered as appropriate for the patient's presenting symptoms and complaint, with consideration of any critical or life threatening conditions that may be associated with their obtained history and exam as noted above. Patient was treated with IV magnesium, DuoNeb breathing treatments, inhaled budesonide and IV Solu-Medrol Results were reviewed when available and demonstrated unremarkable work-up, negative chest x-ray The patient was re-evaluated and was stable and improved Evaluation was most consistent with acute asthma exacerbation, will prescribe Flovent, advised [id number] allergy medication in addition to finishing out her prednisone and using intermittent albuterol Results were discussed with the patient at this point, after careful consideration I feel that that patient can be discharged from the emergency department, the patient was educated treatments and reasons to return to the emergency department based on their presumed diagnosis as noted above, they were advised to followup with a primary care physician in 2-3 days. Patient was agreeable to plan of care. *Note is created using voice recognition software and may contain spelling, syntax or grammatical errors. Laboratory 02/04/19 02/04/19 13:45 13:45 WBC 6.6 RBC 4.96 Hgb 13.0 Hct 39.6 MCV 80 MCH 26.1 L MCHC 32.7 RDW 15.8 H Plt Count 278 Seg Neutrophils % 65.8 Lymphocytes % 25.9 Monocytes % 7.5 Eosinophils % 0.4 Basophils % 0.4 Absolute Neutrophils 4.4 Absolute Lymphocytes 1.7 Absolute Monocytes 0.5 Absolute Eosinophils 0.0 Absolute Basophils 0.0 Sodium 141.0 Potassium 3.7 Chloride 104 Carbon Dioxide 28 Anion Gap 9 BUN 12 Creatinine 1.07 Est GFR ( Amer) > 60 Est GFR (Non-Af Amer) 57 L Glucose 93 Calcium 9.2 Total Bilirubin 0.6 Direct Bilirubin 0.3 Neonat Total Bilirubin Not Reportable Neonat Direct Bilirubin Not Reportable Neonat Indirect Bili Not Reportable AST 18 ALT 26 Alkaline Phosphatase 72 Total Protein 7.0 Albumin 3.7 Chest X-Ray 02/04/19 13:04 IMPRESSION: NO ACUTE RADIOGRAPHIC FINDING IN THE CHEST. - Vital Signs Vital signs: Temp Pulse Resp BP Pulse Ox 98.3 F 96 22 H 163/99 H 94 02/04/19 12:27 02/04/19 12:27 02/04/19 12:27 02/04/19 12:27 02/04/19 12:27 - Laboratory Result Diagrams: 02/04/19 13:45 02/04/19 13:45 Laboratory results interpreted by me: 02/04/19 02/04/19 13:45 13:45 MCH 26.1 L RDW 15.8 H Est GFR (Non-Af Amer) 57 L Discharge - Discharge Clinical Impression: Asthma exacerbation Qualifiers: Asthma severity: unspecified severity Asthma persistence: unspecified Qualified Code(s): J45.901 - Unspecified asthma with (acute) exacerbation Condition: Stable Disposition: HOME, SELF-CARE Instructions: Asthma ([facility], [facility]) Additional Instructions: Please finish the course of prednisone previously prescribed, and start taking the Flovent inhaler that is been prescribed, 2 puffs twice daily, after using this inhaler it is important to rinse your mouth and spit, to prevent development of thrush. Please follow-up with your primary care physician. Prescriptions: Fluticasone Propionate [Flovent Hfa 110 Mcg Inhalation Aerosol 12 gm] 2 puff IH Q12 #1 inhaler Referrals: SALVATORE CHINCHILLA MD [ACTIVE STAFF] - Follow up in 3-5 days (or your primary care. )
[2019-02-04 14:29] LABS: ALANINE AMINOTRANSFERASE 26 U/L (9-52); ALBUMIN 3.7 g/dL (3.5-5.0); ALKALINE PHOSPHATASE 72 U/L (38-126); ANION GAP 9 (5-19); ASPARTATE AMINO TRANSFERASE 18 U/L (14-36); BILIRUBIN,DIRECT 0.3 mg/dL (0.0-0.4); BILIRUBIN,TOTAL 0.6 mg/dL (0.2-1.3); BLOOD UREA NITROGEN 12 mg/dL (7-20); CALCIUM 9.2 mg/dL (8.4-10.2); CARBON DIOXIDE 28 mmol/L (22-30); CHLORIDE 104 mmol/L (98-107); GLUCOSE 93 mg/dL (75-110); POTASSIUM 3.7 mmol/L (3.6-5.0)
[2019-02-04] MEDS ORDERED: BUDESONIDE NEB 0.5 MG/2 ML AMPUL NEB ONE (14:34)
[2019-02-04 16:10] VITALS: BP 123/72
== END 2019-02-04 16:10 | disposition home or self-care (01) ==
LOC: ER 12:15
DX: J45.901 Unspecified asthma with (acute) exacerbation (principal); Z90.49 Acquired absence of other specified parts of digestive tract
CPT/HCPCS: 94640 ×2; 99285; 96375; 96365; 36415; 85025; 80053; 71046; J2930; J3475; J7620